=== PATIENT | male | born 1995 | race Caucasian/White ===

== ENCOUNTER 2019-12-08 16:08 | Emergency (ER) | payer MEDICAID ==
[~2019-12-08] VITALS: Ht 167.6 cm; Wt 79.5 kg
[2019-12-08 17:41] VITALS: BP 142/91
== END 2019-12-08 18:49 | disposition home or self-care (01) ==
LOC: EMS 16:08
DX: F15.10 Other stimulant abuse, uncomplicated (principal); R45.851 Suicidal ideations; F17.210 Nicotine dependence, cigarettes, uncomplicated; J45.909 Unspecified asthma, uncomplicated
CPT/HCPCS: 99406

== ENCOUNTER → 2020-11-01 | Emergency (ER) | payer MEDICAID ==
[~2020-11-01] VITALS: Ht 167.6 cm; Wt 86.4 kg
[~2020-11-01] MED LIST: ACETAMINOPHEN 500 MG TABLET PO ONE; IBUPROFEN 800 MG TABLET PO ONE
[2020-11-01 05:39] VITALS: BP 140/99
== END | disposition home or self-care (01) ==
LOC: EMS 02:57
DX: S00.12XA Contusion of left eyelid and periocular area, initial encounter (principal); J45.909 Unspecified asthma, uncomplicated; F17.210 Nicotine dependence, cigarettes, uncomplicated; F19.90 Other psychoactive substance use, unspecified, uncomplicated; Y33.XXXA Other specified events, undetermined intent, initial encounter; Y93.02 Activity, running; Y92.488 Other paved roadways as the place of occurrence of the external cause; Y99.8 Other external cause status
CPT/HCPCS: 99285; Z7502; Z7610

== ENCOUNTER 2022-12-13 23:16 | Emergency (ER) | payer MEDICAID ==
[~2022-12-13] VITALS: Ht 167.6 cm; Wt 81.8 kg
[2022-12-14] MEDS ORDERED: BACITRACIN 0.9 GM PACKET OINTMENT TP ONE (00:45)
[2022-12-14] MEDS ORDERED: ACETAMINOPHEN 325 MG TABLET PO ONE (00:45)
[2022-12-14 01:39] VITALS: BP 133/72
== END 2022-12-14 01:49 | disposition home or self-care (01) ==
LOC: EMS 23:17
DX: S00.83XA Contusion of other part of head, initial encounter (principal); J45.909 Unspecified asthma, uncomplicated; F17.210 Nicotine dependence, cigarettes, uncomplicated; F15.90 Other stimulant use, unspecified, uncomplicated; W19.XXXA Unspecified fall, initial encounter; Y93.89 Activity, other specified; Y92.89 Other specified places as the place of occurrence of the external cause; Y99.8 Other external cause status
CPT/HCPCS: 70450; 70486; 72125; 99284